=== PATIENT | male | born 1960 | race Caucasian/White ===

== ENCOUNTER 2017-07-01 10:00 | Emergency (ER) | payer OTHER ==
--- NOTE | 2017-07-01 10:15 | Emergency Department Record ---
History of Present Illness - General Chief Complaint: Chest Pain Stated Complaint: CHEST PAIN Time Seen by Provider: 07/01/17 10:14 Source: Patient Mode of Arrival: Ambulatory Limitations: No limitations - History of Present Illness Initial Comments: The patient is here due to a 5 day hx of CP. The pain is mainly retrosternal and aching with intermittent radiation to his jaw. He has had mild SOB with the pain and it also is worse at times with deep breaths. The patient also has been anxious due to the recent of his brother. The is today also. The patient believes the stress due to the recent is what is triggering his pain. He states the pain is worse at times with exertion and does calm down with rest. He has no cardiac risk factors. MD Complaint: Chest pain Onset/Timin -: Days(s) Pain Location: Left chest Pain Radiation: LUE, Jaw/teeth Worsens With: Exertion Anginal Symptoms: Nausea - Related Data Home Medications Medication Instructions Recorded Confirmed Last Taken Adalimumab [Humira] 10 mg SQ ASDIR 07/01/17 07/01/17 06/25/17 Methotrexate Sodium [Trexall] 5 mg PO WEEKLY 07/01/17 07/01/17 06/27/17 Allergies Allergy/AdvReac Type Severity Reaction Status Date / Time Penicillins Allergy ANAPHYLAXIS Verified 08/29/15 02:06 Travel Screening - Travel/Exposure Within Last 30 Days Have you traveled within the last 30 days?: No - Travel/Exposure Within Last Year Have you traveled outside the [place] in the last year?: No - Additonal Travel Details Have you been exposed to anyone with a communicable illness?: No - Travel Symptoms Symptom Screening: None Review of Systems Constitutional: Denies: Chills, Fever Eyes: Denies: Eye discharge ENT: Denies: Congestion Respiratory: Denies: Cough, Dyspnea Past Medical History - SOCIAL HISTORY Smoking Status: Never smoker Alcohol Use: None Drug Use: None - RESPIRATORY Hx Respiratory Disorders: No - CARDIOVASCULAR Hx Cardio Disorders: No Hx Heart Attack: Yes Hx Hypertension: Yes - NEURO Hx Neuro Disorders: No Hx Dizziness: Yes - GI Hx GI Disorders: No Hx Abdominal Pain: Yes Hx Hiatal Hernia: Yes Hx Nausea/Vomiting: Yes - Hx Genitourinary Disorders: Yes Hx Kidney Stones: Yes - ENDOCRINE Hx Endocrine Disorders: No - MUSCULOSKELETAL Hx Musculoskeletal Disorders: Yes Comment:: psoriatic arthritis - PSYCH Hx Psych Problems: No - HEMATOLOGY/ONCOLOGY Hx Hematology/Oncology Disorders: No Family Medical History Any Significant Family History?: No Hx Cancer: Father Hx Diabetes: Brother/Sister Hx HTN: Father, Mother Hx Kidney Disease: Brother/Sister Physical Exam - General General Appearance: Alert, Oriented x3, Cooperative, No acute distress - Head Head exam: Atraumatic, Normocephalic, Normal inspection - Eye Eye exam: Normal appearance, PERRL - ENT Throat exam: Normal inspection. negative: Tonsillar erythema, Tonsillar exudate - Neck Neck exam: Normal inspection, Full ROM. negative: Tenderness - Respiratory Respiratory exam: Normal lung sounds bilaterally. negative: Respiratory distress - Cardiovascular Cardiovascular Exam: Regular rate, Normal rhythm, Normal heart sounds - GI/Abdominal GI/Abdominal exam: Soft, Normal bowel sounds. negative: Tenderness - Extremities Extremities exam: Normal inspection, Full ROM, Normal capillary refill. negative: Tenderness Course Vital Signs 07/01/17 10:02 Temperature 97 F L Pulse Rate 73 Respiratory 12 Rate Blood Pressure 167/102 Pulse Ox 96 - Reevaluation(s) Reevaluation #1: The patient is doing a lot better at this time. His CP and SOB are completely resolved. 07/01/17 10:34 Reevaluation #2: The patient is doing much better at this time. He denies any pain or discomfort. The patient is refusing his CXR and now states he would like to leave to go to his brothers . I explained to him that we have not done a full eval and the patient will need to leave AMA. I explained to him that the risk of leaving is that he could go home and have an AK, stroke, be disabled and . The patient fully understands and accepts the risks and understands we cannot be held liable for his leaving. The patient has proper decision making capacity and understand the risks of leaving. 07/01/17 11:01 Medical Decision Making - Lab Data Result diagrams: 07/01/17 10:16 07/01/17 10:16 Disposition Disposition: Discharge Clinical Impression: Chest pain Qualifiers: Chest pain type: unspecified Qualified Code(s): R07.9 - Chest pain, unspecified Disposition: Against Medical Advice Condition: (1) Good Instructions: Chest Pain (ED) Additional Instructions: Please use the Ativan if needed. Take a full dose aspirin daily. Please see your PCP [facility]. Return to the ER for any increased pain, trouble breathing, fever , or if you change your mind about being evaluated further. Forms: Patient Portal Access Time of Disposition: 10:53 Quality - Quality Measures Quality Measures: N/A - Blood Pressure Screening View Details: Yes Does Patient Have Any of the Following: No Blood Pressure Classification: Hypertensive Reading Systolic Measurement: 167 Diastolic Measurement: 102 Screening for High Blood Pressure: < Pre-Hypertensive BP, F/U Documented > [ G8950] Pre-Hypertensive Follow-up Interventions: Referral to alternative/primary care provider.
[2017-07-01] MEDS: ASPIRIN 325 MG TABLET PO ONE (10:23)
[2017-07-01 10:31] LABS: BASO % 0.5 % (0-6); EOS % 4.4 % (0-6); GRAN % 48.6 % (47-80); HEMATOCRIT 41.8 % (42.0-52.0); HEMOGLOBIN 14.1 gm/dl (14.0-18.0); LYMPH % 34.8 % (16-45); MEAN CELL VOLUME 87.3 fl (81-97); MEAN CORPUSCULAR HEMOGLOBIN 29.4 pg (27-33); MEAN CORPUSCULAR HGB CONC 33.7 g/dl (32-36); MEAN PLATELET VOLUME 9.6 fl (7.4-10.4); MONO % 11.7 % (0-9); PLATELET COUNT 245 K/uL (130-400); RED BLOOD COUNT 4.79 M/uL (4.40-5.70); RED CELL DISTRIBUTION WIDTH 12.9 % (11.5-14.5); WHITE BLOOD COUNT W/O DIFF 5.5 K/uL (4.2-12.2)
[2017-07-01 10:38] LABS: ANION GAP 9.4 (7-16); BLOOD UREA NITROGEN 18 mg/dL (9-20); CARBON DIOXIDE 23.6 mmol/L (22-30); CREATINE PHOSPHOKINASE 115 U/L (55-170); CREATININE 0.9 mg/dL (0.66-1.25); EST GLOMERULAR FILTRATION RATE > 60 ml/min; GLUCOSE,RANDOM 128 mg/dL (70-110)
[2017-07-01 10:50] LABS: CKMB 2.3 ug/L (0-6); TROPONIN I < 0.012 ng/mL (0.00-0.034)
[2017-07-01] MEDS: LORAZEPAM 0.5 MG TABLET PO ONE (11:02)
== END 2017-07-01 11:12 | disposition left against medical advice (07) ==
LOC: ER 10:00
DX: R07.9 Chest pain, unspecified (principal); R06.02 Shortness of breath; R11.0 Nausea; I10 Essential (primary) hypertension
CPT/HCPCS: 80048; 82550; 82553; 84484; 85025; 85379; 93005; 93010; 99284

== ENCOUNTER 2017-12-26 05:37 | Emergency (ER) | payer OTHER ==
[2017-12-26] MEDS ORDERED: ACETAMINOPHEN 500 MG TABLET PO ONE (05:52)
[2017-12-26] MEDS ORDERED: IBUPROFEN 400 MG TABLET PO ONE (05:52)
--- NOTE | 2017-12-26 05:56 | Emergency Department Record ---
History of Present Illness - General Chief Complaint: Fever Stated Complaint: FEVER Time Seen by Provider: 12/26/17 05:51 Source: Patient Mode of Arrival: Ambulatory Limitations: No limitations - History of Present Illness Initial Comments: 57 yo male presents to ED for evaluation of fever and body aches that began yesterday. Patient reports taking tylenol last night, denies health problems at his baseline. Patient denies health problems at his baseline other than HTN MD Complaint: Fever Onset/Timin -: Hour(s) Temperature Source: Oral Associated Symptoms: Cough, Myalgias, Nausea Treatments Prior to Arrival: "Cold medicine" - Related Data Home Medications Medication Instructions Recorded Confirmed Last Taken Blood Pressure Medicaitons 1 tab PO ASDIR 12/26/17 12/26/17 Unknown Etanercept [Enbrel] 25 mg SQ WEEKLY 12/26/17 12/26/17 Unknown Previous Rx's Medication Instructions Recorded Doxycycline Hyclate [Doxycycline] 200 mg PO BID #18 tab 12/26/17 Allergies Allergy/AdvReac Type Severity Reaction Status Date / Time Penicillins Allergy ANAPHYLAXIS Verified 12/26/17 05:44 Travel Screening - Travel/Exposure Within Last 30 Days Have you traveled within the last 30 days?: No - Travel/Exposure Within Last Year Have you traveled outside the [place] in the last year?: No - Additonal Travel Details Have you been exposed to anyone with a communicable illness?: No - Travel Symptoms Symptom Screening: None Review of Systems Constitutional: Reports: Chills, Fever, Malaise, Weakness. Denies: Night sweats Eyes: Denies: Eye discharge, Eye pain ENT: Denies: Congestion, Ear pain, Epistaxis Respiratory: Denies: Cough, Dyspnea Cardiovascular: Denies: Chest pain, Dyspnea on exertion Endocrine: Reports: Fatigue. Denies: Heat or cold intolerance Gastrointestinal: Denies: Abdominal pain, Nausea, Vomiting Genitourinary: Denies: Incontinence, Retention Musculoskeletal: Denies: Arthralgia, Back pain, Gout, Joint swelling Skin: Denies: Bruising, Change in color Neurological: Denies: Abnormal gait, Confusion, Headache Psychiatric: Denies: Anxiety Hematological/Lymphatic: Denies: Anemia, Blood Clots Past Medical History - SOCIAL HISTORY Smoking Status: Never smoker Alcohol Use: None Drug Use: None - RESPIRATORY Hx Respiratory Disorders: No - CARDIOVASCULAR Hx Cardio Disorders: No Hx Heart Attack: Yes Hx Hypertension: Yes - NEURO Hx Neuro Disorders: No Hx Dizziness: Yes - GI Hx GI Disorders: No Hx Abdominal Pain: Yes Hx Hiatal Hernia: Yes Hx Nausea/Vomiting: Yes - Hx Genitourinary Disorders: Yes Hx Kidney Stones: Yes - ENDOCRINE Hx Endocrine Disorders: No - MUSCULOSKELETAL Hx Musculoskeletal Disorders: Yes Comment:: psoriatic arthritis - PSYCH Hx Psych Problems: No - HEMATOLOGY/ONCOLOGY Hx Hematology/Oncology Disorders: No Family Medical History Any Significant Family History?: Yes Hx Cancer: Father Hx Diabetes: Brother/Sister Hx HTN: Father, Mother Hx Kidney Disease: Brother/Sister Physical Exam - General General Appearance: Alert, Oriented x3, Cooperative, Moderate distress Limitations: No limitations - Head Head exam: Atraumatic, Normocephalic, Normal inspection Head exam detail: negative: Abrasion, Contusion, Hylton's sign, General tenderness, Hematoma, Laceration - Eye Eye exam: Normal appearance. negative: Conjunctival injection, Periorbital swelling, Periorbital tenderness, Scleral icterus - ENT Ear exam: negative: Auricular hematoma, Auricular trauma Nasal Exam: negative: Active bleeding, Discharge, Dried blood, Foreign body Mouth exam: negative: Drooling, Laceration, Muffled voice, Tongue elevation Throat exam: negative: Tonsillar erythema, Tonsillomegaly, R peritonsillar mass , L peritonsillar mass - Neck Neck exam: Normal inspection. negative: Meningismus, Tenderness - Respiratory Respiratory exam: Normal lung sounds bilaterally. negative: Respiratory distress, Rhonchi, Stridor, Wheezes - Cardiovascular Cardiovascular Exam: Normal rhythm, Normal heart sounds, Tachycardia - GI/Abdominal GI/Abdominal exam: Soft. negative: Distended, Rebound, Rigid, Tenderness - Rectal Rectal exam: Deferred - exam: Deferred - Extremities Extremities exam: Normal inspection. negative: Calf tenderness, Pedal edema, Tenderness - Back Back exam: Denies: CVA tenderness (R), CVA tenderness (L) - Neurological Neurological exam: Alert, Normal gait, Oriented X3 - Psychiatric Psychiatric exam: Normal affect, Normal mood - Skin Skin exam: Normal color. negative: Abrasion Type of lesion: negative: abrasion Course Vital Signs 12/26/17 05:40 Temperature 100.3 F H Pulse Rate 115 H Respiratory 24 Rate Blood Pressure 131/93 Pulse Ox 94 L - Reevaluation(s) Reevaluation #1: 12/26/17 06:43 Influenza: Negative CXR: Possible infiltrate right base Patient was updated on all results, pulse improved to 103 on re-examination. Will initiate treatment with Doxycycline as directed. Disposition Disposition: Discharge Clinical Impression: CAP (community acquired pneumonia) Qualifiers: Laterality: right Lung location: lower lobe of lung Qualified Code(s): J18.1 - Lobar pneumonia, unspecified organism Disposition: Home, Self-Care Condition: (2) Stable Instructions: Community Acquired Pneumonia (ED) Additional Instructions: Return to ED if your symptoms worsen or if you have any concerns. Doxycycline as directed. Follow-up with your family doctor in 3-5 days as directed. Prescriptions: Doxycycline Hyclate [Doxycycline] 200 mg PO BID #18 tab Forms: Patient Portal Access Time of Disposition: 06:45 Quality - Quality Measures Quality Measures: N/A - Blood Pressure Screening Does Patient Have Any of the Following: No Blood Pressure Classification: Hypertensive Reading Systolic Measurement: 131 Diastolic Measurement: 93 Screening for High Blood Pressure: < First Hypertensive BP, F/U Documented > [ G8950] First Hypertensive Follow-up Interventions: Referral to alternative/primary care provider.
[2017-12-26 05:58] LABS: INFLUENZA A NEGATIVE (NEGATIVE); INFLUENZA B NEGATIVE (NEGATIVE)
[2017-12-26] MEDS ORDERED: DOXYCYCLINE HYCLATE 100 MG CAPSULE PO ONE (06:42)
--- NOTE | 2017-12-26 21:56 | RADIOLOGY REPORT ---
EXAM: CHEST 2 VIEWS HISTORY: COUGH, CONGESTION, AND FEVER FOR ONE DAY. TECHNIQUE: PA and lateral views. COMPARISON: Two-view chest 03/07/14. FINDINGS: Heart size is within normal limits. Mild pleural thickening bilaterally. There is some mild linear fibrosis or discoid atelectasis at the right base. No acute alveolar infiltrate is seen and no pleural effusion or pneumothorax evident. Hypertrophic spurring in the spine. IMPRESSION: 1. HYPERTROPHIC SPURRING IN THE SPINE. 2. MILD LINEAR FIBROSIS OR DISCOID ATELECTASIS RIGHT BASE. JOB NUMBER: [id number] [facility]
== END 2017-12-26 07:03 | disposition home or self-care (01) ==
LOC: ER 05:37
DX: J18.1 Lobar pneumonia, unspecified organism (principal); R11.0 Nausea; I10 Essential (primary) hypertension; I25.2 Old myocardial infarction
CPT/HCPCS: 71046; 87400; 99283